=== PATIENT | female | born 1960 | race Caucasian/White ===

== ENCOUNTER 2019-04-01 08:35 | Outpatient (CLI) | payer OTHER, SELFPAY ==
--- NOTE | 2019-04-01 13:57 | PET ---
PET W CT Skull to Mid Thigh History: Anal cancer C 21.1 Comparison: None available Findings: PET/CT from skull base through mid thigh was performed after the intravenous administration 10.8 mCi F-18 FDG. No abnormal FDG avidity within the thorax. High-grade abnormal FDG uptake throughout the anus involvi ng the sphincters with direct invasion through the left serosa from 3:00-6:00 involving the left levator ani muscle. There is direct extension through the mesorectal fascia as well as likely involve ment of the posterior wall of the vagina. The SUV max of the rectal cancer is 15.5. There are metastatic left superficial inguinal lymph nodes with SUV max 11.7. Left external iliac lymph nodes have SUV max of 11.1. Internal iliac lymph nodes have SUV max of 9.9. The involved superficial inguinal lymph node on the left as a short axis of 21 mm. Internal iliac lef t left and a short axis of 14 mm. Left mesorectal lymph node has short axis of 16 mm. Large simple cyst right kidney measures 10 cm in size with low-grade medial displacement of the renal parenchyma. Lungs are clear. No FDG avid pulmonary nodules. No adenopathy. Ascending aorta measures up to 3.6 cm. No dilated loops of large or small bowel. No FDG avid osteolytic or osteoblastic foci of the skeleton. Impression: 1. Markedly FDG avid primary anal cancer extending through the sphincters with direct extension seros al invasion from 3:00-6:00 into the left mesorectal fat and levator ani muscle. 2. High concern for direct tumor extension into the posterior vaginal wall. 3. Metastatic FDG avid mesorectal, superficial inguinal, internal iliac, external iliac and obturator adenopathy.
== END 2019-04-01 08:36 | disposition home or self-care (01) ==
LOC: PET 08:35
PROVIDERS: ATTEND Internal Medicine Hematology & Oncology
DX: C21.1 Malignant neoplasm of anal canal (principal)
CPT/HCPCS: 78815; A9552

== ENCOUNTER 2019-04-01 10:27 | Outpatient (CLI) | payer SELFPAY ==
[2019-04-01 11:45] LABS: #Eosinphils 0.1 thou/uL (0.0-0.7); #Lymphocytes 2.2 thou/uL (1.20-3.40); #Monocytes 0.4 thou/uL (0.11-0.59); #Neutrophils 4.7 thou/uL (1.40-6.50); %Basophils 0.6 % (0.0-1.0); %Lymphocytes 29.4 % (21.0-51.0); %Monocytes 5.4 % (0.0-10.0); %Neutrophils 63.7 % (42.0-75.0); Hemoglobin 13.6 g/dL (12.0-16.0); Mean Corpuscular Hemoglobin 30.4 pg (27.0-31.0); Mean Corpuscular Volume 86.9 fL (78.0-98.0); Mean Platelet Volume 6.3 fL (7.4-10.4); Platelet Count 268 thou/uL (130-400); RBC Distribution Width 11.8 % (11.5-14.5); Red Blood Cell (RBC) Count 4.48 mill/uL (4.20-5.40); White Blood Cell (WBC) Count 7.4 thou/uL (4.8-10.8)
[2019-04-01 12:03] LABS: Anion Gap 13 mmol/L (10-20); BUN (Urea Nitrogen) 15 mg/dL (9.8-20.1); Calc. Creatinine Clearance 0 mL/min (70-130); Calcium 9.6 mg/dL (7.8-10.44); Carbon Dioxide 23 mmol/L (22-29); Chloride 107 mmol/L (98-107); Estimated GFR-MDRD 88; Glucose 103 mg/dL (70-105); Potassium 3.8 mmol/L (3.5-5.1); Sodium 139 mmol/L (136-145)
== END 2019-04-01 10:28 | disposition home or self-care (01) ==
LOC: LABBT 10:27
PROVIDERS: ATTEND Surgery
DX: Z01.812 Encounter for preprocedural laboratory examination (principal); C21.0 Malignant neoplasm of anus, unspecified
CPT/HCPCS: 80048; 85025

== ENCOUNTER 2019-04-02 12:59 | Day surgery (SDC) | payer OTHER, SELFPAY ==
[2019-04-01 10:45] VITALS: BMI 32.1
[2019-04-02] MEDS ORDERED: Lidocaine 2% PF 5 ML VIAL ONE (14:10)
[2019-04-02] MEDS ORDERED: Bupivacaine/Epinephrine 0.25% 30 ML VIAL ONE (14:10)
[2019-04-02] MEDS ORDERED: Heparin 5,000 UNITS/ML VIAL ONE (14:10)
[2019-04-02] MEDS ORDERED: Midazolam HCl 2 mg/2 ml Vial ONE (14:12)
--- NOTE | 2019-04-02 16:19 | RAD ---
XR Chest 1 View Portable History: MediPort placement Comparison: None. Findings: Port catheter tip sits at the inferior SVC. Mild prominence of the hilum bilaterally. Pneumothorax. No effusion. Heart size upper limits of normal. Impression: Uncomplicated placement port catheter.
--- NOTE | 2019-04-03 14:39 | PDOC.OP ---
Operative Note - Operative Note Operative Note: PROCEDURE: Left internal jugular MediPort placement with ultrasound and fluoroscopic guidance DATE OF PROCEDURE: 04/02/2019 SURGEON: Heladio Rodgers M.D. PREOPERATIVE DIAGNOSIS: Squamous cell carcinoma of the anus POSTOPERATIVE DIAGNOSIS: Squamous cell carcinoma of the anus HISTORY: Patient has been diagnosed with anal cancer. Chemotherapy has been recommended and a Mediport has been requested for this. OPERATIVE PROCEDURE IN DETAIL: After informed consent was obtained and appropriate preoperative antibiotics administered, the patient was taken to the operating room and placed in supine position and monitored anesthesia care was administered. The patient was then placed in Trendelenburg position and the left subclavian vein attempted to be accessed by the usual approach. However, there was no flow of blood on 2 attempts so the decision was made to place the catheter in the left internal jugular position. The patent compressible left internal jugular vein was accessed easily on the first attempt under direct ultrasound guidance with excellent flow of dark venous non-pulsatile blood. A wire threaded easily and was confirmed to be in the compressible vein by ultrasound and with the tip in the superior vena cava by fluoroscopy. Additional local anesthesia was infused to the skin and subcutaneous tissues of the left neck and chest. A skin incision was made on the left chest and a subcutaneous pocket developed inferiorly. A Mediport was obtained and confirmed to fit in the subcutaneous pocket. This was secured inferiorly to the pectoralis fascia with a Prolene suture, which was clamped, but not tied. Mediport tubing was then tunneled from the chest to the right IJ access site subcutaneously. The dilator and sheath were then placed over the wire and the dilator and wire removed leaving the sheath in place. The clamped MediPort tubing was tunneled through the sheath, which was then split and removed leaving the MediPort tubing in place. The tubing was adjusted until the tip was confirmed by fluoroscopy to be in the superior vena cava just above the atrium. The tubing was clamped at the skin level and cut and the tubing secured to the port, which was then placed in the subcutaneous pocket. The previously placed suture was secured and two additional sutures were placed to fix the port in place within the pocket. The port was aspirated with the Arellano needle and had excellent flow of dark venous non-pulsatile blood and easily flushed without resistance. The subcutaneous tissues were closed with a running Monocryl suture, following which the skin was closed with a running subcuticular Monocryl suture. Dermabond dressings were placed. The course of the catheter was confirmed by fluoroscopy to be smooth with the tip appropriately located in the superior vena cava. The patient was taken back to recovery in good condition. Estimated blood loss was minimal. There were no complications. There were no specimens.
== END 2019-04-02 16:58 | disposition home or self-care (01) ==
LOC: SDC 12:59
PROVIDERS: ATTEND Surgery
DX: C21.0 Malignant neoplasm of anus, unspecified (principal)
CPT/HCPCS: 71045; C1788; J0690; J1642; J1644; J2001; J2250

== ENCOUNTER 2019-04-19 10:17 | Day surgery (SDC) | payer OTHER, SELFPAY ==
[~2019-04-19 10:17] MED LIST: MITOMYCIN IV SCH; Ondansetron 2MG/ML MDV 10 MG, Dexamethasone Sod Phosphate 10 MG in Sodium Chloride 0.9%... IVPB SCH; Palonosetron HCl 0.25 MG in Sodium Chloride 0.9% 50 ML IVPB SCH; SODIUM CHLORIDE 0.9% IV SCH
[2019-04-19 10:35] VITALS: BP 162/82; TEMP 98
[2019-04-19] MEDS ORDERED: Sodium Chloride 0.9% 20 ML ONE (10:52)
== END 2019-04-19 12:52 | disposition home or self-care (01) ==
LOC: ONC/OP 10:17
PROVIDERS: ATTEND Internal Medicine Hematology & Oncology
DX: Z51.11 Encounter for antineoplastic chemotherapy (principal); C21.1 Malignant neoplasm of anal canal
CPT/HCPCS: 96367; 96375; 96409; J1100; J1453; J1642; J2405; J2469; J3490; J9280

== ENCOUNTER 2019-04-22 18:06 | Observation (INO) | payer OTHER, SELFPAY ==
[~2019-04-22 18:06] MED LIST changes: +Iopamidol 370 76% 100 ML VIAL ONE; -MITOMYCIN IV SCH; -Ondansetron 2MG/ML MDV 10 MG, Dexamethasone Sod Phosphate 10 MG in Sodium Chloride 0.9%... IVPB SCH; -Palonosetron HCl 0.25 MG in Sodium Chloride 0.9% 50 ML IVPB SCH; -SODIUM CHLORIDE 0.9% IV SCH
[2019-04-22 18:36] LABS: #Lymphocytes 0.8 thou/uL (1.20-3.40); #Monocytes 0.1 thou/uL (0.11-0.59); #Neutrophils 3.5 thou/uL (1.40-6.50); %Basophils 0.4 % (0.0-1.0); %Eosinophils 0.3 % (0.0-10.0); %Lymphocytes 18.4 % (21.0-51.0); %Monocytes 2.9 % (0.0-10.0); Hemoglobin 12.5 g/dL (12.0-16.0); Mean Corpuscular HGB CONC 34.7 g/dL (32.0-36.0); Mean Corpuscular Volume 86.7 fL (78.0-98.0); Mean Platelet Volume 5.6 fL (7.4-10.4); Platelet Count 222 thou/uL (130-400); RBC Distribution Width 11.7 % (11.5-14.5); Red Blood Cell (RBC) Count 4.16 mill/uL (4.20-5.40); White Blood Cell (WBC) Count 4.5 thou/uL (4.8-10.8)
[2019-04-22 18:47] LABS: ALT (SGPT) 22 U/L (8-55); AST (SGOT) 14 U/L (5-34); Albumin 3.8 g/dL (3.5-5.0); Alkaline Phosphatase 91 U/L (40-110); Anion Gap 14 mmol/L (10-20); BUN (Urea Nitrogen) 13 mg/dL (9.8-20.1); Bilirubin, Total 0.5 mg/dL (0.2-1.2); Calc. Creatinine Clearance 0 mL/min (70-130); Carbon Dioxide 25 mmol/L (22-29); Chloride 102 mmol/L (98-107); Estimated GFR-MDRD 86; Globulin 2.9 g/dL (2.4-3.5); Glucose 134 mg/dL (70-105); Potassium 3.7 mmol/L (3.5-5.1); Protein, Total 6.7 g/dL (6.0-8.3); Sodium 137 mmol/L (136-145)
--- NOTE | 2019-04-22 18:55 | RAD ---
RADIOGRAPH CHEST 2 VIEWS: DATE: 04/22/2019 HISTORY: 58-year-old female with chest pain FINDINGS: There is no airspace density, pulmonary edema, pleural effusion, pneumothorax, or cardiomegaly. There is a left IJ implantable vascular access port catheter with distal tip overlying SVC. IMPRESSION: 1. No acute cardiopulmonary findings. 2. Implantable vascular access port.
[2019-04-22] MEDS ORDERED: Aspirin 325 MG TAB ONE ×2 (20:55→21:58)
[2019-04-22] MEDS ORDERED: Ketorolac Tromethamine 30 MG/ML VIAL ONE (20:55)
[2019-04-22] MEDS ORDERED: Morphine 4 MG/ML VIAL ONE (20:55)
--- NOTE | 2019-04-22 21:02 | CT ---
CT ANGIOGRAM THORAX WITH CONTRAST: (CTA pulmonary angiogram) DATE: 04/22/2019 HISTORY: 58 year-old cancer patient presents with chest pain TECHNIQUE: IV injection of iodinated contrast. Scan acquisition timing attempted to coincide with iodinated contrast bolus reaching maximal density in pulmonary arteries. 3-D MIP reconstructions. FINDINGS: Pulmonary thromboembolism: None. Lungs: Clear. Pneumothorax: None. Pleural effusion: None. Thoracic aorta: No aneurysm or dissection. Mediastinum: No lymphadenopathy or other mass. Marielena: No lymphadenopathy or other mass. IMPRESSION: Normal.
[2019-04-23 00:19] VITALS: BMI 31.4
[2019-04-23 00:36] LABS: Troponin I 0.022 ng/mL (< 0.028)
[2019-04-23] MEDS ORDERED: Acetaminophen 325 MG TAB PO PRN (01:00)
[2019-04-23] MEDS ORDERED: Ondansetron PF 4 MG/2 ML Vial IVP PRN (01:00)
[2019-04-23] MEDS ORDERED: Ondansetron ODT 4 MG TAB PO PRN (01:00)
[2019-04-23 03:12] LABS: #Lymphocytes 0.6 thou/uL (1.20-3.40); #Monocytes 0.1 thou/uL (0.11-0.59); #Neutrophils 3.6 thou/uL (1.40-6.50); %Eosinophils 0.3 % (0.0-10.0); %Lymphocytes 13.2 % (21.0-51.0); %Monocytes 2.6 % (0.0-10.0); %Neutrophils 83.9 % (42.0-75.0); Hemoglobin 12.7 g/dL (12.0-16.0); Mean Corpuscular HGB CONC 36.8 g/dL (32.0-36.0); Mean Corpuscular Hemoglobin 32.5 pg (27.0-31.0); Mean Corpuscular Volume 88.2 fL (78.0-98.0); Mean Platelet Volume 5.9 fL (7.4-10.4); Platelet Count 208 thou/uL (130-400); RBC Distribution Width 11.6 % (11.5-14.5); Red Blood Cell (RBC) Count 3.92 mill/uL (4.20-5.40); White Blood Cell (WBC) Count 4.2 thou/uL (4.8-10.8)
[2019-04-23 03:33] LABS: Anion Gap 12 mmol/L (10-20); BUN (Urea Nitrogen) 10 mg/dL (9.8-20.1); Calc. Creatinine Clearance 129 mL/min (70-130); Calcium 8.8 mg/dL (7.8-10.44); Carbon Dioxide 26 mmol/L (22-29); Chloride 102 mmol/L (98-107); Estimated GFR-MDRD Greater than 90; Glucose 170 mg/dL (70-105); Potassium 3.6 mmol/L (3.5-5.1); Sodium 136 mmol/L (136-145); Troponin I Less than 0.010 ng/mL (< 0.028)
--- NOTE | 2019-04-23 08:01 | HP ---
PRIMARY CARE PHYSICIAN: The patient follows with Dr. Cha, no official PCP. CODE STATUS: Full code. TIME OF EVALUATION: 12:45 a.m. CHIEF COMPLAINT: Chest pain. HISTORY OF PRESENT ILLNESS: This is a 58-year-old female patient with past medical history of cancer. The patient has rectal cancer and came to the hospital after having "the patient has anal cancer diagnosed recently in 2018, has received radiation for it and was receiving her first round of chemo now." The patient has reported that she has had hard time having her chemo in the past few days and today, she started having severe sudden onset, excruciating pain in the middle of the chest and radiating bilaterally to the armpits with no clear triggers, no alleviating factors. This is the first time she has it. She never had any heart problems before. For that reason, Dr. Ryan spoke with Dr. Cha. The plan is to monitor her on tele, the reason is for cardiac toxicity and we have decided to stop medications during my examination where the patient has continued to have severe chest pains. These might be worsening her cardiac function and given these risks, we are going to stop the medication now and consult Dr. Cha for any further recommendation. REVIEW OF SYSTEMS: CONSTITUTIONAL: No fever, no chills or generalized weakness. RESPIRATORY: No cough, sputum production, or shortness of breath. CARDIOVASCULAR: The patient has severe chest pain as described in HPI. GASTROINTESTINAL: No nausea. No vomiting, diarrhea, or abdominal pain. SERGEANT OF CORRECTIONS: No dizziness, headache, or feeling lightheaded. GENITOURINARY: No burning urination. EXTREMITIES: No leg swelling. All other system review was negative, except for the findings mentioned above. The patient has a history of breast cancer in her mom's side. PAST MEDICAL HISTORY: Rectal cancer, recently diagnosed, currently undergoing chemo. This is her first round of chemo. SURGICAL HISTORY: Vaginal sling. FAMILY HISTORY: Reviewed, noncontributory for current presentation. PSYCHIATRIC HISTORY: No previous psych history. SOCIAL HISTORY: No alcohol. No drugs. No smoking history. KNOWN ALLERGIES: No known drug allergies. REPORTED MEDICATIONS: Fluorouracil and mitomycin. PHYSICAL EXAMINATION: VITAL SIGNS: On presentation; blood pressure 144/92 with heart rate 66, respiratory rate was 18, pain 0/10, and oxygen saturation was 96% on room air. GENERAL APPEARANCE: The patient is alert, oriented, no acute distress. HEENT: Eyes, normal conjunctivae. Moist oral mucosa. Anicteric. No JVD. RESPIRATORY: Bilateral air entry. No rales. No wheezes. Symmetric expansion. CARDIOVASCULAR: Normal rate. Regular rhythm. No murmurs. No gallop. No edema. ABDOMEN: Soft. Normal bowel sounds. MUSCULOSKELETAL: Baseline range of motion and strength. SKIN: Warm, intact. No pallor. No rash. No redness. Capillary refill seems to be intact. NEURO: No evidence of any new focal weakness. Cranial nerves seem to be intact. PSYCH: The patient is in good mood. No anxiety. Optimal judgment. IMAGING DATA: EKG was reviewed. The patient has normal sinus rhythm with a rate of [address] Normal [address]-segment and T-waves. The chest CT angiogram was normal. LABORATORY DATA: The patient presented with white count of 4.5, hemoglobin 12.5 , MCV 86.7, and platelet count 222. D-dimer 1.05. Chemistry was completely normal. Kidney function was normal. Glucose was 134, repeat one 170. Troponins have been negative x3 with lipase 190. ASSESSMENT AND PLAN: The patient will be placed in the hospital with following medical problems; 1. Chest pain, that is oppressive, that is severe, likely triggered by current chemotherapy. Dr. Cha has been consulted and was recommended to stop the medication as the patient consistent with chest pain that we had followed that recommendation. have been developing some cardiac toxicity from chemo. We will monitor. If needed, the patient may need some echo if not improving. 2. Leukopenia that is mild, could be related to chemo. QAMARKER]. 3. Positive D-dimer in patient with cancer. CT angio was done and was negative for pulmonary embolism. 4. Hyperglycemia. The patient has no history of diabetes. We will monitor. Could be related to acute physical distress. No need for any acute intervention at this point. 5. Consultation with Dr. Cha will be needed to establish any further recommendations prior to going home. 6. Deep venous thrombosis prophylaxis. Job ID: [id number] [facility]
[2019-04-23] MEDS ORDERED: Enoxaparin Sodium 40 MG/0.4 ML SYRINGE SC SCH (09:00)
[2019-04-23] MEDS ORDERED: Nitroglycerin 0.4 MG TAB (25 Tab Bottle) PO PRN (13:07)
[2019-04-23 15:56] VITALS: BP 111/69; TEMP 98.8
--- NOTE | 2019-04-23 18:49 | EKG ---
Test Reason : STAT Blood Pressure : / mmHG Vent. Rate : 063 BPM Atrial Rate : 063 BPM P-R Int : 150 ms QRS Dur : 082 ms QT Int : 420 ms P-R-T Axes : 032 -04 027 degrees QTc Int : 429 ms Normal sinus rhythm Normal ECG No previous ECGs available Confirmed by ABELARDO BENNETT, DR. Garcia ([id number]) on 04/23/2019 6:49:32 PM Referred By: JOAN Confirmed By:DR. Radha ZHOU MD
--- NOTE | 2019-04-23 22:04 | CON ---
DATE OF CONSULTATION: REASON FOR CONSULT: Anal cancer. HISTORY OF PRESENT ILLNESS: Ms. Lilly is a pleasant 58-year-old female, who was diagnosed with stage III anal squamous cell carcinoma. She started chemotherapy this week with mitomycin and 5-FU on Friday. She has been carrying a 5-FU pump with her over the last several days. She began to have chest tightening yesterday with pressure, radiated to both armpits. There was no alleviating factors. She called Dr. Del Cid, who sent her to the emergency room for further evaluation. She underwent a CT angio, which was negative for pulmonary embolism; a chest x-ray, which showed no acute process. Her troponin was negative. She was admitted for serial troponins. Her 5-FU pump was stopped and disconnected from her mediport. She had approximately 8 hours of chemo left. Her chest pain has resolved overnight. She is feeling much better and wishes to go home. 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 PAST SURGICAL HISTORY: 1. Pelvic floor sling. 2. Tonsillectomy. 3. Biopsy. ALLERGIES: NO KNOWN DRUG ALLERGIES. HOME MEDICATIONS: 1. Zofran. 2. Compazine p.r.n. FAMILY HISTORY: Positive for mother with breast cancer. SOCIAL HISTORY: , has 3 children. Five pack-year history of smoking. No alcohol or illicit drug use. REVIEW OF SYSTEMS: A 10-point review of systems is negative. PHYSICAL EXAMINATION: VITAL SIGNS: Temperature 97.9, pulse 67, respiratory rate 16, BP is 123/72. She is 94% on room air. GENERAL: Well-developed, well-nourished female, in no acute distress. HEENT: Normocephalic, atraumatic. Pupils are equal and reactive to light. NECK: Supple. CV: Regular rate and rhythm. LUNGS: Clear. ABDOMEN: Soft and nontender. Bowel sounds are positive. EXTREMITIES: No clubbing, cyanosis, or edema. SKIN: No rash. HEMATOLOGICAL: No petechiae or purpura. NEUROLOGICAL: Nonfocal. PERTINENT LABORATORY DATA AND X-RAYS: Current WBCs 4.2, hemoglobin 12.7, hematocrit 34.6, platelet count is 208,000, 84% neutrophils, 13% lymphocytes. Sodium is 136, potassium 3.6, chloride 102, CO2 is 26, BUN is 10, creatinine 0.63, calcium 8.8, bilirubin 0.5, AST is 14, ALT is 22, alkaline phosphatase is 91. Troponin is negative. Serum total protein 6.7, albumin 3.8, globulin 2.9. ASSESSMENT: 1. Squamous cell carcinoma of anus, on chemotherapy. 2. 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 DISCUSSION: The patient's chemo has been disconnected. Her chest pain has resolved. There is no evidence of SC on troponin or EKG. Her pain could be prinzmetal angina as it is a rare side effect from 5FU. The patient wishes to be discharged home. She will follow up with us on Friday for labs. She is instructed to call our office this weekend for any further chest pain. Thank you for the consult on this very pleasant female. Job ID: [id number] [email or web address]
[2019-04-24] MEDS ORDERED: Aspirin 81 mg Enteric Coated Tablet PO SCH (09:00)
--- NOTE | 2019-04-26 07:47 | DIS ---
DATE OF ADMISSION: 04/22/2019 DATE OF DISCHARGE: 04/23/2019 DISCHARGE DISPOSITION: Home. FOLLOWUP: Follow up with primary care physician in 1 week. Follow up with Dr. Katelynn Cha in 1 week. Follow up with Cardiology as outpatient for possible stress test. DISCHARGE MEDICATIONS: Aspirin 81 mg daily. All other home medications were left unchanged. The patient was seen and examined on the day of discharge. Denies any new complaints. No chest pain, shortness of breath, palpitations reported. 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 Please refer to the history and physical for further details. The patient was admitted to the hospital with a diagnosis of chest discomfort, rule out acute coronary syndrome. Serial troponins remain negative. It was felt that the pain was due to Prinzmetal angina from 5-FU. 5-FU has been discontinued per Oncology Service. She was advised to follow up with Cardiology as outpatient for possible outpatient stress test. Low-dose aspirin was added in the meantime. She also had a CT scan of the chest that was negative for pulmonary embolism. She also had mild hyperglycemia with blood sugars of 134 and 170. Further workup as outpatient is recommended. FINAL DIAGNOSES: 1. Chest discomfort, felt to be secondary to Prinzmetal angina from 5-FU. 2. Positive D-dimer with negative CT angiogram of the chest for pulmonary embolism. 3. Leukopenia, mild, probably secondary to chemotherapy. 4. Hyperglycemia. 5. 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 PLAN: Plan was discussed with the patient in detail. She stated understanding. Job ID: [id number]
== END 2019-04-23 16:25 | disposition home or self-care (01) ==
LOC: SCSER 18:06 → 2SW 23:40
PROVIDERS: ADMIT Hospitalist; ATTEND Hospitalist
DX: R07.9 Chest pain, unspecified (principal); C21.0 Malignant neoplasm of anus, unspecified; D72.819 Decreased white blood cell count, unspecified; R73.9 Hyperglycemia, unspecified; R79.1 Abnormal coagulation profile; Z79.899 Other long term (current) drug therapy; Z87.891 Personal history of nicotine dependence
CPT/HCPCS: 71046; 71275; 80048; 80053; 83690; 84484; 85025; 85379; 93005; 93010; G0378; J1642; J1885; J2270; Q9967

== ENCOUNTER 2019-05-17 11:31 | Day surgery (SDC) | payer OTHER, SELFPAY ==
[~2019-05-17 11:31] MED LIST changes: -Iopamidol 370 76% 100 ML VIAL ONE; +MITOMYCIN IV SCH; +Palonosetron HCl 0.25 MG in Sodium Chloride 0.9% 50 ML IVPB SCH; +SODIUM CHLORIDE 0.9% IV SCH
[2019-05-17] MEDS ORDERED: Sodium Chloride 0.9% 20 ML ONE (11:44)
[2019-05-17 11:55] VITALS: BP 111/71; TEMP 97.7
== END 2019-05-17 13:54 | disposition home or self-care (01) ==
LOC: ONC/OP 11:31
PROVIDERS: ATTEND Internal Medicine Hematology & Oncology
DX: Z51.11 Encounter for antineoplastic chemotherapy (principal); C21.1 Malignant neoplasm of anal canal
CPT/HCPCS: 96367; 96375; 96413; J1100; J1453; J2469; J3490; J9280

== ENCOUNTER 2019-07-23 08:10 | Outpatient (CLI) | payer OTHER ==
--- NOTE | 2019-07-23 11:16 | PET ---
PET CT: HISTORY: A 58-year-old female with anal cancer. Status post last chemotherapy on 05/17/2019. Exam is requested to evaluate for subsequent therapy. Last radiation therapy to the anal canal was performed in 2018. COMPARISON: PET CT dated 04/01/2019 TECHNIQUE: PET scanning with CT attenuation correction was performed from the base of the brain through the prox imal thighs following the intravenous administration of 10.7 millicuries F18 fluorodeoxyglucose in th e right antecubital fossa. FINDINGS: No carlos hypermetabolism is seen in the neck, chest, axillae, abdomen, pelvis or inguinal regions. No hypermetabolic pulmonary nodules or liver, adrenal or skeletal lesions are seen. There is increased uptake in the region of the anorectal canal with an SUV of 3.4. The CT scan used for attenuation correction demonstrates no evidence of pleural effusions or ascites. A large right renal cyst is present. IMPRESSION: No evidence of metastatic disease. POS: KATALINA
== END 2019-07-23 08:11 | disposition home or self-care (01) ==
LOC: PET 08:10
PROVIDERS: ATTEND Internal Medicine Hematology & Oncology
DX: C21.0 Malignant neoplasm of anus, unspecified (principal)
CPT/HCPCS: 78815; A9552